=== PATIENT | male | born 1980 | race Caucasian/White ===

== ENCOUNTER 2019-09-24 10:18 | Emergency (ER) | payer MEDICARE, MEDICAID ==
[~2019-09-24] VITALS: Ht 175.3 cm; Wt 63.6 kg
[2019-09-24] MEDS ORDERED: RISP.5 PO (10:41)
[2019-09-24 10:48] LABS: BASOPHILS % (AUTO) 0.6 % (0.0-2.0); EOSINOPHILS % (AUTO) 1.2 % (1.0-6.0); HEMATOCRIT 45.8 % (41-53); HEMOGLOBIN 15.3 g/dL (13.5-17.5); LYMPHOCYTES # (AUTO) 1.2 K/uL (1.0-4.8); LYMPHOCYTES % (AUTO) 11.4 % (22.0-44.0); MEAN CORPUSCULAR HEMOGLOBIN 27.9 pg (26.0-34.0); MEAN CORPUSCULAR HGB CONC 33.5 G/dL (31.0-37.0); MEAN CORPUSCULAR VOLUME 84 fL (80-100); MONOCYTES % (AUTO) 9.3 % (2.0-9.0); NEUTROPHILS # (AUTO) 8.4 K/uL (1.8-7.7); NEUTROPHILS % (AUTO) 77.5 % (40.0-70.0); PLATELET COUNT (AUTO) 302 K/uL (150-450); RED BLOOD CELL COUNT(AUTO) 5.48 MIL/uL (4.50-5.90); RED CELL DISTRIBUTION WIDTH 13.7 % (11.5-14.5)
[2019-09-24 11:03] LABS: ANION GAP 6 mmol/L (8-16); CALCIUM, TOTAL 9.3 mg/dL (8.8-10.5); CARBON DIOXIDE 30 mmol/L (22-29); CHLORIDE 98 mmol/L (98-107); CREATININE 1.05 mg/dL (0.60-1.30); GLOMERULAR FILTR. RATE CALC > 60 mL/min (>60); GLUCOSE,RANDOM 117 mg/dL (70-110); POTASSIUM 4.5 mmol/L (3.5-5.1); SODIUM SERUM 134 mmol/L (136-145); UREA NITROGEN, BLOOD 10 mg/dL (7-18)
[2019-09-24 11:09] LABS: ALANINE AMINOTRANSFERASE 28 U/L (12-78); ALBUMIN 4.1 g/dL (3.4-5.0); ALKALINE PHOSPHATASE 64 U/L (46-116); ASPARTATE AMINOTRANSFERASE 45 U/L (15-37); BILIRUBIN,TOTAL 0.5 mg/dL (0.1-1.0); TOTAL PROTEIN, SERUM 7.8 g/dL (6.4-8.2)
[2019-09-24 12:45] VITALS: BP 128/83
[2019-09-24 13:05] LABS: AMPHET/METH SCREEN,URINE NEGATIVE (NEGATIVE); BARBITURATE SCREEN, URINE NEGATIVE (NEGATIVE); BENZODIAZEPINES SCREEN,URINE NEGATIVE (NEGATIVE); CANNABINOID SCREEN,URINE NEGATIVE (NEGATIVE); COCAINE SCREEN,URINE NEGATIVE (NEGATIVE); METHADONE SCREEN, URINE NEGATIVE (NEGATIVE); OPIATE SCREEN,URINE NEGATIVE (NEGATIVE)
[2019-09-24 13:06] LABS: PHENCYCLIDINE SCREEN,URINE NEGATIVE (NEGATIVE)
== END 2019-09-24 13:42 | disposition home or self-care (01) ==
LOC: EMS 10:20
DX: R45.851 Suicidal ideations (principal); F32.9 Major depressive disorder, single episode, unspecified; F17.210 Nicotine dependence, cigarettes, uncomplicated
CPT/HCPCS: 36415; 80053; 80307; 85025; 99284; 99406; G0480

== ENCOUNTER 2019-09-26 10:38 | Emergency (ER) | payer MEDICAID, MEDICARE ==
[~2019-09-26] VITALS: Ht 175.3 cm; Wt 68.2 kg
[~2019-09-26 10:38] MED LIST: RISP.5 PO
[2019-09-26 11:57] LABS: BASOPHILS % (AUTO) 0.7 % (0.0-2.0); EOSINOPHILS % (AUTO) 1.9 % (1.0-6.0); HEMOGLOBIN 14.7 g/dL (13.5-17.5); LYMPHOCYTES # (AUTO) 1.3 K/uL (1.0-4.8); LYMPHOCYTES % (AUTO) 16.7 % (22.0-44.0); MEAN CORPUSCULAR HGB CONC 33.3 G/dL (31.0-37.0); MEAN CORPUSCULAR VOLUME 84 fL (80-100); MONOCYTES # (AUTO) 0.8 K/uL (0.1-1.0); MONOCYTES % (AUTO) 9.9 % (2.0-9.0); NEUTROPHILS # (AUTO) 5.6 K/uL (1.8-7.7); NEUTROPHILS % (AUTO) 70.8 % (40.0-70.0); PLATELET COUNT (AUTO) 234 K/uL (150-450); RED BLOOD CELL COUNT(AUTO) 5.24 MIL/uL (4.50-5.90); RED CELL DISTRIBUTION WIDTH 13.7 % (11.5-14.5)
[2019-09-26 12:09] LABS: ANION GAP 7 mmol/L (8-16); CARBON DIOXIDE 31 mmol/L (22-29); CHLORIDE 104 mmol/L (98-107); CREATININE 0.97 mg/dL (0.60-1.30); GLUCOSE,RANDOM 101 mg/dL (70-110); SODIUM SERUM 142 mmol/L (136-145); UREA NITROGEN, BLOOD 11 mg/dL (7-18)
[2019-09-26 12:10] LABS: CALCIUM, TOTAL 8.7 mg/dL (8.8-10.5); GLOMERULAR FILTR. RATE CALC > 60 mL/min (>60)
[2019-09-26 12:16] LABS: ALANINE AMINOTRANSFERASE 36 U/L (12-78); ALBUMIN 3.6 g/dL (3.4-5.0); ALKALINE PHOSPHATASE 56 U/L (46-116); ASPARTATE AMINOTRANSFERASE 47 U/L (15-37); BILIRUBIN,TOTAL 0.6 mg/dL (0.1-1.0); TOTAL PROTEIN, SERUM 6.9 g/dL (6.4-8.2)
[2019-09-26] MEDS ORDERED: RisperiDONE 1 MG TABLET PO ONE (12:45)
[2019-09-26] MEDS ORDERED: RISP2 PO (12:49)
[2019-09-26 13:38] VITALS: BP 142/86
== END 2019-09-26 14:18 | disposition home or self-care (01) ==
LOC: EMS 10:39
DX: F20.9 Schizophrenia, unspecified (principal); F31.9 Bipolar disorder, unspecified; F17.210 Nicotine dependence, cigarettes, uncomplicated; Z98.890 Other specified postprocedural states; Z79.899 Other long term (current) drug therapy
CPT/HCPCS: 36415; 71045; 80053; 85025; 99285; G0480

== ENCOUNTER 2019-10-19 21:14 | Inpatient (IN) | payer MEDICARE, MEDICAID ==
[~2019-10-19] VITALS: Ht 175.3 cm; Wt 72.1 kg
[~2019-10-19 21:14] MED LIST changes: -RISP.5 PO; +RISP2 PO
[2019-10-19 22:31] LABS: HEMOGLOBIN 15.5 g/dL (13.5-17.5); LYMPHOCYTES # (AUTO) 1.7 K/uL (1.0-4.8); MEAN CORPUSCULAR HEMOGLOBIN 27.9 pg (26.0-34.0); MEAN CORPUSCULAR HGB CONC 33.2 G/dL (31.0-37.0)
[2019-10-19 22:35] LABS: BASOPHILS % (AUTO) 0.9 % (0.0-2.0); EOSINOPHILS % (AUTO) 2.1 % (1.0-6.0); HEMATOCRIT 46.7 % (41-53); MEAN CORPUSCULAR VOLUME 84 fL (80-100); MONOCYTES # (AUTO) 0.6 K/uL (0.1-1.0); NEUTROPHILS # (AUTO) 7.9 K/uL (1.8-7.7); RED BLOOD CELL COUNT(AUTO) 5.54 MIL/uL (4.50-5.90); RED CELL DISTRIBUTION WIDTH 14.6 % (11.5-14.5)
[2019-10-19 22:42] LABS: ANION GAP 9 mmol/L (8-16); CALCIUM, TOTAL 9.6 mg/dL (8.8-10.5); CARBON DIOXIDE 31 mmol/L (22-29); CHLORIDE 104 mmol/L (98-107); CREATININE 0.81 mg/dL (0.60-1.30); GLOMERULAR FILTR. RATE CALC > 60 mL/min (>60); GLUCOSE,RANDOM 94 mg/dL (70-110); POTASSIUM 3.8 mmol/L (3.5-5.1); SODIUM SERUM 144 mmol/L (136-145); UREA NITROGEN, BLOOD 8 mg/dL (7-18)
[2019-10-19 22:49] LABS: ALANINE AMINOTRANSFERASE 36 U/L (12-78); ALBUMIN 4.2 g/dL (3.4-5.0); ALKALINE PHOSPHATASE 61 U/L (46-116); ASPARTATE AMINOTRANSFERASE 23 U/L (15-37); BILIRUBIN,TOTAL 0.5 mg/dL (0.1-1.0); TOTAL PROTEIN, SERUM 7.9 g/dL (6.4-8.2)
[2019-10-19 22:59] VITALS: BP 122/85
[2019-10-19] MEDS ORDERED: OLANZapine 5 MG RAPDIS TABLET PO PRN (23:00)
[2019-10-19] MEDS ORDERED: LORazepam 2 MG TABLET PO PRN (23:00)
[2019-10-19] MEDS ORDERED: ZOLPIDEM TARTRATE 10 MG TABLET PO PRN (23:00)
[2019-10-19 23:13] LABS: PLATELET COUNT (AUTO) 288 K/uL (150-450)
[2019-10-20 00:55] VITALS: BP 137/93
[2019-10-20 07:22] LABS: CHOL/HDL RATIO 2.7 (4.2-7.3)
[2019-10-20 08:00] VITALS: BP 110/62
[2019-10-20] MEDS: FLUoxetine HCL 20 MG CAPSULE PO SCH (09:00)
[2019-10-20] MEDS ORDERED: LOPERAMIDE HCL 2 MG CAPSULE PO PRN (15:30)
[2019-10-20] MEDS ORDERED: MAG HYDROX/AL HYDROX/SIMETH ES 30 ML SUSPENSION UDCUP PO PRN (15:30)
[2019-10-20] MEDS ORDERED: HydrOXYzine PAMOATE 50 MG CAPSULE PO PRN (15:30)
[2019-10-20] MEDS ORDERED: GuaiFENesin/D-METHORPHAN [SUGAR-FREE] 200-20MG/10 ML SYRUP UDCUP PO PRN (15:30)
[2019-10-20] MEDS ORDERED: ACETAMINOPHEN 325 MG TABLET PO PRN (15:30)
[2019-10-20] MEDS ORDERED: PROMETHAZINE HCL 25 MG TABLET PO PRN (15:30)
[2019-10-20] MEDS ORDERED: MAGNESIUM HYDROXIDE SUSPENSION 30 ML UDCUP PO PRN (15:30)
[2019-10-20] MEDS ORDERED: TUBERCULIN, PURIFIED PROTEIN DERIVATIVE 5 TU/0.1 ML SYRINGE ID ONE (15:30)
[2019-10-20] MEDS: THIAMINE HCL 100 MG TABLET PO SCH (16:36)
[2019-10-20] MEDS: BACITRACIN 28.4 GM OINTMENT TP SCH (16:36)
[2019-10-20 18:27] VITALS: BP 112/62
[2019-10-20] MEDS: OLANZapine 10 MG TABLET PO SCH (21:50)
[2019-10-20] MEDS: DIVALPROEX SODIUM 500 MG DR TABLET PO SCH (21:50)
[2019-10-21 07:09] LABS: HEMOGLOBIN A1C 5.5 % (3.8-5.6)
[2019-10-21 07:22] LABS: CHOL/HDL RATIO 2.6 (4.2-7.3); FREE T4 (FREE THYROXINE) 1.46 ng/dL (0.76-1.46); THYROID STIMULATING HORMONE 0.66 uIU/mL (0.36-3.74)
[2019-10-21 08:00] VITALS: BP 114/65
[2019-10-21] MEDS: FLUoxetine HCL 20 MG CAPSULE PO SCH (09:00)
[2019-10-21] MEDS: NALTREXONE HCL 50 MG TABLET PO SCH (09:14)
[2019-10-21] MEDS: FOLIC ACID 1 MG TABLET PO SCH (09:14)
[2019-10-21] MEDS: THIAMINE HCL 100 MG TABLET PO SCH ×2 (09:15→16:20)
[2019-10-21] MEDS: MULTIVITAMINS WITH MINERALS, THERAPEUTIC TABLET PO SCH (09:15)
[2019-10-21] MEDS: BACITRACIN 28.4 GM OINTMENT TP SCH ×2 (09:15→16:19)
[2019-10-21 17:00] VITALS: BP 119/72
[2019-10-21] MEDS: DIVALPROEX SODIUM 500 MG DR TABLET PO SCH (20:21)
[2019-10-21] MEDS: OLANZapine 10 MG TABLET PO SCH (20:21)
[2019-10-22] MEDS: FLUoxetine HCL 20 MG CAPSULE PO SCH (08:37)
[2019-10-22] MEDS: MULTIVITAMINS WITH MINERALS, THERAPEUTIC TABLET PO SCH (08:38)
[2019-10-22] MEDS: BuPROPion HCL XL 150 MG ER TABLET PO SCH (08:38)
[2019-10-22] MEDS: BACITRACIN 28.4 GM OINTMENT TP SCH ×2 (08:39→16:07)
[2019-10-22] MEDS: FOLIC ACID 1 MG TABLET PO SCH (08:39)
[2019-10-22] MEDS: THIAMINE HCL 100 MG TABLET PO SCH ×2 (08:39→16:07)
[2019-10-22] MEDS: NALTREXONE HCL 50 MG TABLET PO SCH (08:39)
[2019-10-22 09:42] VITALS: BP 120/78
[2019-10-22 16:22] VITALS: BP 124/68
[2019-10-22] MEDS: DIVALPROEX SODIUM 500 MG DR TABLET PO SCH (20:52)
[2019-10-22] MEDS ORDERED: OLANZapine 7.5 MG TABLET PO SCH (21:00)
[2019-10-23] MEDS: BACITRACIN 28.4 GM OINTMENT TP SCH ×2 (09:00→16:18)
[2019-10-23] MEDS: FLUoxetine HCL 20 MG CAPSULE PO SCH (09:00)
[2019-10-23] MEDS: BuPROPion HCL XL 150 MG ER TABLET PO SCH (09:00)
[2019-10-23] MEDS: THIAMINE HCL 100 MG TABLET PO SCH ×2 (09:05→16:07)
[2019-10-23] MEDS: MULTIVITAMINS WITH MINERALS, THERAPEUTIC TABLET PO SCH (09:05)
[2019-10-23] MEDS: NALTREXONE HCL 50 MG TABLET PO SCH (09:05)
[2019-10-23] MEDS: FOLIC ACID 1 MG TABLET PO SCH (09:05)
[2019-10-23 09:13] VITALS: BP 105/68
[2019-10-23 16:30] VITALS: BP 132/46
[2019-10-23] MEDS: OLANZapine 5 MG TABLET PO SCH (20:01)
[2019-10-23] MEDS: DIVALPROEX SODIUM 500 MG DR TABLET PO SCH (20:02)
[2019-10-24] MEDS: MULTIVITAMINS WITH MINERALS, THERAPEUTIC TABLET PO SCH (08:55)
[2019-10-24] MEDS: FOLIC ACID 1 MG TABLET PO SCH (08:55)
[2019-10-24] MEDS: THIAMINE HCL 100 MG TABLET PO SCH ×2 (08:55→16:49)
[2019-10-24] MEDS: NALTREXONE HCL 50 MG TABLET PO SCH (09:00)
[2019-10-24] MEDS: BACITRACIN 28.4 GM OINTMENT TP SCH ×2 (09:00→16:49)
[2019-10-24] MEDS: FLUoxetine HCL 20 MG CAPSULE PO SCH (09:00)
[2019-10-24 10:15] VITALS: BP 108/70
[2019-10-24 18:13] VITALS: BP 98/72
[2019-10-24] MEDS: OLANZapine 5 MG TABLET PO SCH (20:25)
[2019-10-24] MEDS: DIVALPROEX SODIUM 500 MG DR TABLET PO SCH (20:26)
[2019-10-25 08:30] VITALS: BP 115/64
[2019-10-25] MEDS: FLUoxetine HCL 20 MG CAPSULE PO SCH (09:00)
[2019-10-25] MEDS: NALTREXONE HCL 50 MG TABLET PO SCH (09:00)
[2019-10-25] MEDS: BACITRACIN 28.4 GM OINTMENT TP SCH ×2 (09:05→16:21)
[2019-10-25] MEDS: FOLIC ACID 1 MG TABLET PO SCH (09:05)
[2019-10-25] MEDS: THIAMINE HCL 100 MG TABLET PO SCH ×2 (09:05→16:22)
[2019-10-25] MEDS: MULTIVITAMINS WITH MINERALS, THERAPEUTIC TABLET PO SCH (09:06)
[2019-10-25 16:58] VITALS: BP 109/62
[2019-10-25] MEDS: OLANZapine 5 MG TABLET PO SCH (20:04)
[2019-10-25] MEDS: DIVALPROEX SODIUM 500 MG DR TABLET PO SCH (20:04)
[2019-10-26] MEDS: FOLIC ACID 1 MG TABLET PO SCH (08:04)
[2019-10-26] MEDS: MULTIVITAMINS WITH MINERALS, THERAPEUTIC TABLET PO SCH (08:05)
[2019-10-26] MEDS: NALTREXONE HCL 50 MG TABLET PO SCH (08:05)
[2019-10-26] MEDS: THIAMINE HCL 100 MG TABLET PO SCH ×2 (08:06→16:12)
[2019-10-26] MEDS: BACITRACIN 28.4 GM OINTMENT TP SCH ×2 (08:06→16:12)
[2019-10-26] MEDS: FLUoxetine HCL 20 MG CAPSULE PO SCH (08:15)
[2019-10-26 09:00] VITALS: BP 110/65
[2019-10-26] MEDS ORDERED: PYRI50CA PO (11:50)
[2019-10-26] MEDS ORDERED: ISON300 PO (11:50)
[2019-10-26] MEDS: ISONIAZID 300 MG TABLET PO SCH (13:00)
[2019-10-26] MEDS: PYRIDOXINE HCL 50 MG TABLET PO SCH (13:00)
[2019-10-26 16:43] VITALS: BP 98/57
[2019-10-26] MEDS: DIVALPROEX SODIUM 500 MG DR TABLET PO SCH (20:37)
[2019-10-26] MEDS: OLANZapine 5 MG TABLET PO SCH (20:37)
[2019-10-26] MEDS ORDERED: RisperiDONE 1 MG TABLET PO PRN (21:15)
[2019-10-27 08:00] VITALS: BP 142/74
[2019-10-27] MEDS: NALTREXONE HCL 50 MG TABLET PO SCH (09:00)
[2019-10-27] MEDS: FOLIC ACID 1 MG TABLET PO SCH (10:10)
[2019-10-27] MEDS: ISONIAZID 300 MG TABLET PO SCH (10:10)
[2019-10-27] MEDS: THIAMINE HCL 100 MG TABLET PO SCH ×2 (10:11→16:12)
[2019-10-27] MEDS: RisperiDONE 1 MG TABLET PO SCH ×3 (10:11→16:12)
[2019-10-27] MEDS: MULTIVITAMINS WITH MINERALS, THERAPEUTIC TABLET PO SCH (10:11)
[2019-10-27] MEDS: PYRIDOXINE HCL 50 MG TABLET PO SCH (10:11)
[2019-10-27] MEDS: BACITRACIN 28.4 GM OINTMENT TP SCH ×2 (10:21→16:12)
[2019-10-27 16:00] VITALS: BP 103/70
[2019-10-27] MEDS: DIVALPROEX SODIUM 500 MG DR TABLET PO SCH (20:04)
[2019-10-28 08:00] VITALS: BP 108/71
[2019-10-28] MEDS: FOLIC ACID 1 MG TABLET PO SCH (08:54)
[2019-10-28] MEDS: MULTIVITAMINS WITH MINERALS, THERAPEUTIC TABLET PO SCH (08:54)
[2019-10-28] MEDS: THIAMINE HCL 100 MG TABLET PO SCH ×2 (08:54→16:07)
[2019-10-28] MEDS: ISONIAZID 300 MG TABLET PO SCH (08:55)
[2019-10-28] MEDS: NALTREXONE HCL 50 MG TABLET PO SCH (08:55)
[2019-10-28] MEDS: PYRIDOXINE HCL 50 MG TABLET PO SCH (08:56)
[2019-10-28] MEDS: RisperiDONE 2 MG TABLET PO SCH ×3 (08:56→16:08)
[2019-10-28] MEDS: BACITRACIN 28.4 GM OINTMENT TP SCH ×2 (09:00→16:07)
[2019-10-28 16:31] VITALS: BP 114/71
[2019-10-28] MEDS: DIVALPROEX SODIUM 500 MG DR TABLET PO SCH (20:13)
[2019-10-29 08:00] VITALS: BP 112/61
[2019-10-29] MEDS: MULTIVITAMINS WITH MINERALS, THERAPEUTIC TABLET PO SCH (08:17)
[2019-10-29] MEDS: THIAMINE HCL 100 MG TABLET PO SCH ×2 (08:17→16:39)
[2019-10-29] MEDS: RisperiDONE 2 MG TABLET PO SCH ×3 (08:17→16:40)
[2019-10-29] MEDS: PYRIDOXINE HCL 50 MG TABLET PO SCH (08:18)
[2019-10-29] MEDS: FOLIC ACID 1 MG TABLET PO SCH (08:18)
[2019-10-29] MEDS: NALTREXONE HCL 50 MG TABLET PO SCH (08:18)
[2019-10-29] MEDS: ISONIAZID 300 MG TABLET PO SCH (08:18)
[2019-10-29] MEDS: BACITRACIN 28.4 GM OINTMENT TP SCH ×2 (08:21→16:45)
[2019-10-29 17:04] VITALS: BP 116/65
[2019-10-29] MEDS: DIVALPROEX SODIUM 500 MG DR TABLET PO SCH (20:07)
[2019-10-29] MEDS: RisperiDONE 3 MG TABLET PO SCH (20:08)
[2019-10-30 08:00] VITALS: BP 106/62
[2019-10-30] MEDS: THIAMINE HCL 100 MG TABLET PO SCH (08:01)
[2019-10-30] MEDS: RisperiDONE 3 MG TABLET PO SCH ×2 (08:01→20:29)
[2019-10-30] MEDS: MULTIVITAMINS WITH MINERALS, THERAPEUTIC TABLET PO SCH (08:01)
[2019-10-30] MEDS: NALTREXONE HCL 50 MG TABLET PO SCH (08:02)
[2019-10-30] MEDS: PYRIDOXINE HCL 50 MG TABLET PO SCH (08:02)
[2019-10-30] MEDS: ISONIAZID 300 MG TABLET PO SCH (08:02)
[2019-10-30] MEDS: FOLIC ACID 1 MG TABLET PO SCH (08:02)
[2019-10-30] MEDS: BACITRACIN 28.4 GM OINTMENT TP SCH ×2 (08:04→16:43)
[2019-10-30 16:44] VITALS: BP 117/77
[2019-10-30] MEDS: DIVALPROEX SODIUM 500 MG DR TABLET PO SCH (20:29)
[2019-10-31 08:00] VITALS: BP 116/68
[2019-10-31] MEDS: PYRIDOXINE HCL 50 MG TABLET PO SCH (08:31)
[2019-10-31] MEDS: MULTIVITAMINS WITH MINERALS, THERAPEUTIC TABLET PO SCH (08:31)
[2019-10-31] MEDS: ISONIAZID 300 MG TABLET PO SCH (08:31)
[2019-10-31] MEDS: NALTREXONE HCL 50 MG TABLET PO SCH (08:31)
[2019-10-31] MEDS: RisperiDONE 3 MG TABLET PO SCH ×2 (08:31→20:14)
[2019-10-31] MEDS: BACITRACIN 28.4 GM OINTMENT TP SCH ×2 (08:53→17:00)
[2019-10-31 16:45] VITALS: BP 102/64
[2019-10-31] MEDS: DIVALPROEX SODIUM 500 MG DR TABLET PO SCH (20:14)
[2019-11-01 08:00] VITALS: BP 112/64
[2019-11-01] MEDS: MULTIVITAMINS WITH MINERALS, THERAPEUTIC TABLET PO SCH (08:10)
[2019-11-01] MEDS: ISONIAZID 300 MG TABLET PO SCH (08:10)
[2019-11-01] MEDS: NALTREXONE HCL 50 MG TABLET PO SCH (08:10)
[2019-11-01] MEDS: RisperiDONE 3 MG TABLET PO SCH ×2 (08:11→20:06)
[2019-11-01] MEDS: PYRIDOXINE HCL 50 MG TABLET PO SCH (08:11)
[2019-11-01] MEDS: BACITRACIN 28.4 GM OINTMENT TP SCH ×2 (09:00→17:00)
[2019-11-01 16:00] VITALS: BP 102/75
[2019-11-01] MEDS: DIVALPROEX SODIUM 500 MG DR TABLET PO SCH (20:06)
[2019-11-02 08:29] VITALS: BP 132/76
[2019-11-02] MEDS: ISONIAZID 300 MG TABLET PO SCH (08:30)
[2019-11-02] MEDS: NALTREXONE HCL 50 MG TABLET PO SCH (08:31)
[2019-11-02] MEDS: MULTIVITAMINS WITH MINERALS, THERAPEUTIC TABLET PO SCH (08:31)
[2019-11-02] MEDS: RisperiDONE 3 MG TABLET PO SCH (08:31)
[2019-11-02] MEDS: PYRIDOXINE HCL 50 MG TABLET PO SCH (08:31)
[2019-11-02] MEDS: BACITRACIN 28.4 GM OINTMENT TP SCH ×2 (09:09→16:28)
[2019-11-02 17:01] VITALS: BP 100/62
[2019-11-02] MEDS: RisperiDONE 2 MG TABLET PO SCH (20:17)
[2019-11-02] MEDS: DIVALPROEX SODIUM 500 MG DR TABLET PO SCH (20:18)
[2019-11-03 08:51] VITALS: BP 112/68
[2019-11-03] MEDS: BACITRACIN 28.4 GM OINTMENT TP SCH ×2 (09:00→16:02)
[2019-11-03] MEDS: ISONIAZID 300 MG TABLET PO SCH (09:19)
[2019-11-03] MEDS: RisperiDONE 2 MG TABLET PO SCH ×2 (09:20→20:14)
[2019-11-03] MEDS: PYRIDOXINE HCL 50 MG TABLET PO SCH (09:20)
[2019-11-03] MEDS: NALTREXONE HCL 50 MG TABLET PO SCH (09:20)
[2019-11-03] MEDS: MULTIVITAMINS WITH MINERALS, THERAPEUTIC TABLET PO SCH (09:20)
[2019-11-03 16:58] VITALS: BP 110/62
[2019-11-03] MEDS: DIVALPROEX SODIUM 500 MG DR TABLET PO SCH (20:14)
[2019-11-04] MEDS: BACITRACIN 28.4 GM OINTMENT TP SCH ×2 (09:00→16:31)
[2019-11-04] MEDS: PYRIDOXINE HCL 50 MG TABLET PO SCH (09:02)
[2019-11-04] MEDS: MULTIVITAMINS WITH MINERALS, THERAPEUTIC TABLET PO SCH (09:02)
[2019-11-04] MEDS: RisperiDONE 2 MG TABLET PO SCH ×2 (09:02→20:04)
[2019-11-04] MEDS: NALTREXONE HCL 50 MG TABLET PO SCH (09:02)
[2019-11-04] MEDS: ISONIAZID 300 MG TABLET PO SCH (09:02)
[2019-11-04 09:26] VITALS: BP 107/64
[2019-11-04 17:06] VITALS: BP 112/80
[2019-11-04] MEDS: DIVALPROEX SODIUM 500 MG DR TABLET PO SCH (20:04)
[2019-11-05 08:29] VITALS: BP 105/58
[2019-11-05] MEDS: NALTREXONE HCL 50 MG TABLET PO SCH (09:23)
[2019-11-05] MEDS: PYRIDOXINE HCL 50 MG TABLET PO SCH (09:23)
[2019-11-05] MEDS: MULTIVITAMINS WITH MINERALS, THERAPEUTIC TABLET PO SCH (09:23)
[2019-11-05] MEDS: RisperiDONE 2 MG TABLET PO SCH ×2 (09:23→20:04)
[2019-11-05] MEDS: ISONIAZID 300 MG TABLET PO SCH (09:24)
[2019-11-05] MEDS: BACITRACIN 28.4 GM OINTMENT TP SCH ×2 (09:24→16:21)
[2019-11-05] MEDS ORDERED: RISP2 PO (16:06)
[2019-11-05] MEDS ORDERED: NALT50TA PO (16:06)
[2019-11-05] MEDS ORDERED: DIVA-78 PO (16:06)
[2019-11-05] MEDS: DIVALPROEX SODIUM 500 MG DR TABLET PO SCH (20:05)
[2019-11-05 20:15] VITALS: BP 104/69
[2019-11-06] MEDS: NALTREXONE HCL 50 MG TABLET PO SCH (08:51)
[2019-11-06] MEDS: MULTIVITAMINS WITH MINERALS, THERAPEUTIC TABLET PO SCH (08:51)
[2019-11-06] MEDS: PYRIDOXINE HCL 50 MG TABLET PO SCH (08:51)
[2019-11-06] MEDS: RisperiDONE 2 MG TABLET PO SCH (08:51)
[2019-11-06] MEDS: ISONIAZID 300 MG TABLET PO SCH (08:51)
[2019-11-06] MEDS: BACITRACIN 28.4 GM OINTMENT TP SCH (09:00)
[2019-11-06 09:47] VITALS: BP 101/61
[2019-11-06] MEDS ORDERED: ISON100L PO (14:22)
[2019-11-06] MEDS ORDERED: PYRI25TA4 PO (14:24)
== END 2019-11-06 14:30 | disposition home or self-care (01) | DRG 885 ==
LOC: EMS 21:14 → 3EX 23:00
PROVIDERS: ADMIT Psychiatry & Neurology Psychiatry; ATTEND Psychiatry & Neurology Psychiatry
DX: F31.30 Bipolar disorder, current episode depressed, mild or moderate severity, unspecified (principal); Z93.3 Colostomy status; R45.851 Suicidal ideations; K50.90 Crohn's disease, unspecified, without complications; F20.9 Schizophrenia, unspecified; F17.210 Nicotine dependence, cigarettes, uncomplicated; Z91.19 Patient's noncompliance with other medical treatment and regimen; Z59.0 Homelessness; Z81.8 Family history of other mental and behavioral disorders; Z91.5 Personal history of self-harm
CPT/HCPCS: 83036; 84439; 84443; 86592; 93005; G0378; G0480